=== PATIENT | female | born 1935 | race Caucasian/White ===

== ENCOUNTER 2022-05-17 21:42 | Observation (INO) ==
--- NOTE | 2022-05-17 22:03 | Emergency Department Note ---
Head Injury HPI General Chief complaint: Trauma Stated complaint: Fall Time Seen by Provider: 05/17/22 21:48 Source: patient, family and EMS Mode of arrival: EMS Limitations: no limitations History of Present Illness HPI Narrative: Narrative: Patient arrived to ED via EMS after head trauma following a fall that occurred 30 minutes prior to arrival. Patient dates she was try to move her dog and she fell backwards hitting her head on a box. She denies any loss of consciousness, vision change, headaches, nausea, vomiting, extremity weakness, extremity numbness, dizziness. She reports that she is on a blood thinner, Xarelto. She was also recently started on a baby aspirin. Patient denies any other alleviating or aggravating factors. Related Data Home Medications Medication Instructions Recorded Confirmed brimonidine 0.2 % eye drops 1 drp ophthalmic (eye) BID 04/03/15 02/10/22 latanoprost 0.005 % eye drops 1 drp ophthalmic (eye) QHS 04/03/15 02/10/22 potassium gluconate 550 mg (90 mg) 595 mg PO QDAY 04/03/15 02/10/22 tablet cetirizine 10 mg tablet (All Day 5 mg PO QDAY PRN 01/20/19 02/10/22 Allergy (cetirizine)) timolol 0.5 % eye drops 1 drp ophthalmic (eye) QDAY 10/24/19 02/10/22 rivaroxaban 15 mg tablet (Xarelto) 15 mg PO QDAY 05/02/20 02/10/22 Previous Rx's Medication Instructions Recorded atorvastatin 10 mg tablet 10 mg PO QDAY #90 tabs 12/24/21 ipratropium bromide 42 mcg (0.06 2 spray intranasal QDAY allergy 12/24/21 %) nasal spray symptoms #15 mL oxybutynin chloride 5 mg tablet 5 mg PO QHS bladder spasms #90 tabs 12/24/21 pantoprazole 40 mg tablet,delayed 40 mg PO QDAY stomach upset #90 12/24/21 release tabs tramadol 50 mg tablet 50 mg PO TID PRN pain #90 tabs 12/24/21 diclofenac sodium 75 mg 75 mg PO BID #60 tabs 04/10/22 tablet,delayed release Allergies Allergy/AdvReac Type Severity Reaction Status Date / Time meperidine [From Demerol] Allergy Severe Unknown Verified 05/17/22 21:48 oxytetracycline Allergy Intermediate NAUSEA, Verified 05/17/22 21:48 [From TERRAMYCIN] VOMITING sulfamethoxazole Allergy Intermediate Unknown Verified 05/17/22 21:48 [From Bactrim] trimethoprim [From Bactrim] Allergy Intermediate Unknown Verified 05/17/22 21:48 codeine [CODEINE] Allergy Mild ITCHING Verified 05/17/22 21:48 fluticasone Allergy Unknown Cough Verified 05/17/22 21:48 [From Advair Diskus] salmeterol Allergy Unknown Cough Verified 05/17/22 21:48 [From Advair Diskus] Acjbrcq-QVM-QzS Reductase AdvReac Intermediate back pain, Verified 05/17/22 21:48 Inhibitor aches [Laudqbi-Ikx-Jbb Reductase Inhibitor] morphine AdvReac Unknown Nausea/Vomi Verified 05/17/22 21:48 ting Sulfa (Sulfonamide AdvReac Unknown Nausea/Vomi Verified 05/17/22 21:48 Antibiotics) ting [SULFA (SULFONAMIDE ANTIBIOTICS)] From TERRAMYCIN Allergy Intermediate NAUSEA, Uncoded 12/24/21 08:29 VOMITING Review of Systems ROS ROS Narrative: Narrative: All systems ED: reviewed and negative except as stated. [facility] Narrative Patient History Narrative: Narrative: Medical/Surgical/Family History All Active Problems (Updated 05/17/22 @ 23:04 by Eric Nieto DO) Fall (Acute) Contusion of head (Acute) Chronic anticoagulation (Acute) Shoulder arthritis (Acute) Initial Medicare annual wellness visit (Acute) Facial twitching (Acute) Chronic, continuous use of opioids (Acute) Medicare annual wellness visit, subsequent (Acute) Medicare annual wellness visit, initial (Acute) Ventricular ectopy (Acute) Hypomagnesemia (Chronic) Benign positional vertigo (Acute) Dog bite of right hand with infection (Acute) Glaucoma (Acute) Gastritis (Acute) Chest pain (Acute) Bug bite (Acute) Wellness examination (Chronic) Overactive bladder (Chronic) Depression (Chronic) Chronic pain (Chronic) Rib pain on right side (Chronic) Annual physical exam (Chronic) Pacemaker (Chronic) S/P angioplasty with stent (Chronic) PE (pulmonary embolism) (Chronic) Essential hypertension (Chronic) Hyperlipidemia (Chronic) Esophageal reflux (Chronic) Depressive disorder (Chronic) CAD (coronary artery disease) (Chronic) Arthritis (Chronic) Medical History Anemia 1950 Annual physical exam Arthritis stable with diclofenac, cmp ok Asthma with exacerbation Back Pain 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 CAD (coronary artery disease) s/p stent, on asa, and statin. no cp or sob. 2013 Nuclear stress test was negative. 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 on diclofenac which makes it worse. Essential hypertension Facial twitching Fracture of ankle, closed 1959 Gastritis Hepatitis 1957 History of EKG (08/02/15) Hyperlipidemia Initial Medicare annual wellness visit Medicare annual wellness visit, initial Medicare annual wellness visit, subsequent Overactive bladder PE (pulmonary embolism) Rib pain on right side Urinary tract infection noted on UA, may explain some of the fatigue, treat with cipro. Wellness examination Surgical History History of bilateral knee replacement 2000 - Left, 2012 - Right History of cholecystectomy 1966 History of colonoscopy 01/2013 History of hysterectomy 1972 Hx of appendectomy 1950 Pacemaker 03/07/2014 - Medtronic, Model [id number] S/P angioplasty with stent 01/1998 Family History Mother Alzheimer's disease Grandmother Type 2 diabetes mellitus Essential hypertension Myocardial Infarction Father , 76 Pulmonary emphysema Aunt Malignant neoplasm Tuberculosis Social History Smoking Status: Former smoker Alcohol Intake Frequency: does not drink Substance Use: does not use Exam Narrative Narrative: Narrative: General Limitations: no limitations General appearance: Present alert Head Head: Present atraumatic and normocephalic Eye Eye: Present PERRL and EOMI ENT ENT: Present normal oropharynx and mucous membranes moist Neck Neck: Present normal inspection and full ROM; Absent tenderness Chest Chest: Present normal inspection; Absent tenderness Respiratory Respiratory: Present normal lung sounds bilaterally; Absent respiratory distress Cardiovascular Cardiovascular: Present regular rate and normal rhythm Adbominal Abdominal: Present soft; Absent tenderness Extremities Extremities: Present normal inspection and normal capillary refill Back Back: Present normal inspection; Absent L-S tenderness Neurological Neurological: Present alert and oriented X3 Psychiatric Psychiatric: Present normal affect and normal mood Skin Skin: Present warm (WNL) and intact Course Course Course Narrative: Patient was evaluated for head trauma secondary to a fall. Physical exam was unremarkable and patient was neurologically intact. CT of the head obtained with image reviewed myself no acute intracranial findings. CT cervical spine obtained with image reviewed myself with no acute bony abnormality. Due to the fact that patient is on anticoagulation and she had head trauma recommend that patient be admitted to the hospital for observation to ensure there is no neurological deficits or slow bleeder. Case was discussed with hospitalist who has agreed to admit the patient. Patient is in agreement with plan. Consultations Consultation #1: Case discussed with hospitalist who has agreed to admit the patient Time: 23:01 Vital Signs Vital signs: Vital Signs Temperature 97.7 F 05/17/22 21:43 Pulse Rate 77 05/17/22 21:43 Respiratory Rate 15 05/17/22 21:43 Blood Pressure 147/130 05/17/22 21:43 Pulse Oximetry (%) 97 05/17/22 21:43 Oxygen Delivery Method 05/17/22 21:43 Temperature 97.7 F 05/17/22 21:43 Pulse Rate 77 05/17/22 21:43 Respiratory Rate 15 05/17/22 22:39 Blood Pressure 147/82 05/17/22 22:39 Pulse Oximetry (%) 97 05/17/22 22:39 Oxygen Delivery Method 05/17/22 21:43 [facility] Narrative Medical decision making narrative: Narrative: Differential Diagnosis Differential Diagnosis: Intracranial bleeding, fall Medical Records Medical records reviewed: Yes I reviewed the patient's medical records. Radiology Data Radiology results reviewed: Yes I reviewed the patient's radiology results. Radiology results narrative: CT of the head obtained with image reviewed myself, no acute intracranial findings CT cervical spine obtained with image reviewed myself, no acute bony abnormality Core Measures AMI Core Measures Followed: Yes Discharge Plan Patient/Caregiver Discharge Instructions Pt seen by [employer]/PA only: No Clinical Impression: Fall, Contusion of head, Chronic anticoagulation Patient Disposition: Xfer As Outpt/Obs ([facility]) Condition: Good Follow up with: Randall Gonzales PA-C [Primary Care Provider] - Prescriptions: No Action diclofenac sodium 75 mg tablet,delayed release (DR/EC) 75 mg PO BID Qty: 60 1RF timolol 0.5 % drops 1 drp OPHTHALMIC QDAY Xarelto 15 mg tablet 15 mg PO QDAY Rx Instructions: must administer with evening meal atorvastatin 10 mg tablet 10 mg PO QDAY Qty: 90 3RF ipratropium bromide 42 mcg (0.06 %) spray,non-aerosol 2 spray INTRANASAL QDAY Qty: 15 1RF Rx Instructions: administer into each nostril up to 3 times daily oxybutynin chloride 5 mg tablet 5 mg PO QHS Qty: 90 3RF pantoprazole 40 mg tablet,delayed release (DR/EC) 40 mg PO QDAY Qty: 90 1RF tramadol 50 mg tablet 50 mg PO TID PRN (Reason: pain) Qty: 90 3RF latanoprost 0.005 % drops 1 drp OPHTHALMIC QHS brimonidine 0.2 % drops 1 drp OPHTHALMIC BID potassium gluconate 550 mg (90 mg) tablet 595 mg PO QDAY cetirizine [All Day Allergy (cetirizine)] 10 mg tablet 5 mg PO QDAY PRN
[2022-05-17] MEDS ORDERED: ONDANSETRON 4 MG/2 ML VIAL IV PRN (23:04)
[2022-05-17] MEDS ORDERED: ACETAMINOPHEN 325 MG TABLET PO PRN (23:04)
[2022-05-18] MEDS ORDERED: CETIRIZINE 10 MG TABLET PO PRN (08:22)
--- NOTE | 2022-05-18 08:34 | Internal Med History&Physical ---
HPI History of Present Illness Patient information: Note initiated : 05/18/22 at 8:28 am Service Date, if different from initiated Date: [] Patient: Devorah Damon a 86 y/o F admitted on 05/17/22 for Fall. Chief Complaint: [fall] Chief complaint: fall History of present illness: Ms. Damon is a 86 year old F s/p cardiac pacemaker placement, also have a history of pulmonary embolism on Xarelto, presenting with fall. She had a fall at home last night and was being sent to our ED for further evaluations. Patient denies any loss of consciousness and instead attribute her accident as to being on the ground and losing balance. She denies any headaches. CT of the head without contrast performed in the ED was negative for any intracranial bleeding or any acute intracranial pathologies. Patient denies any nausea or vomiting. She denies any focal weakness or numbness. She denies any confusion or lethargy.'s labs also within normal limits. Admission request was called for observation for fall on anticoagulations. Constitutional Constitutional: Absent chills, excessive sweating, fatigue, fever(s) or weakness EENT Eyes: Absent blurry vision, change in vision, loss of vision or other visual disturbances Ears: Absent decreased hearing or tinnitus Nose, mouth and throat: Absent abnormal hearing, dry mouth, headache(s), nasal congestion or sore throat Cardiovascular Cardiovascular: Absent chest pain, chest pain at rest, edema, irregular heart rhythm or palpatations Respiratory Respiratory: Absent cough, dyspnea or wheezing Gastrointestinal Gastrointestinal: Absent abdominal pain, constipation, diarrhea, nausea or vomiting Musculoskeletal Musculoskeletal: Absent back pain, deformity, limited range of motion, muscle cramps, muscle weakness or numbness Integumentary Integumentary: Absent lesions, rash or wounds Neurological Neurological: Absent focal weakness, headache(s) or numbness Psychiatric Psychiatric: Absent anxiety, depression or hallucinations PFSH PFSH All Active Problems (Updated 05/17/22 @ 23:04 by Eric Nieto DO) Fall (Acute) Contusion of head (Acute) Chronic anticoagulation (Acute) Shoulder arthritis (Acute) Initial Medicare annual wellness visit (Acute) Facial twitching (Acute) Chronic, continuous use of opioids (Acute) Medicare annual wellness visit, subsequent (Acute) Medicare annual wellness visit, initial (Acute) Ventricular ectopy (Acute) Hypomagnesemia (Chronic) Benign positional vertigo (Acute) Dog bite of right hand with infection (Acute) Glaucoma (Acute) Gastritis (Acute) Chest pain (Acute) Bug bite (Acute) Wellness examination (Chronic) Overactive bladder (Chronic) Depression (Chronic) Chronic pain (Chronic) Rib pain on right side (Chronic) Annual physical exam (Chronic) Pacemaker (Chronic) S/P angioplasty with stent (Chronic) PE (pulmonary embolism) (Chronic) Essential hypertension (Chronic) Hyperlipidemia (Chronic) Esophageal reflux (Chronic) Depressive disorder (Chronic) CAD (coronary artery disease) (Chronic) Arthritis (Chronic) Medical History Anemia 1949 Annual physical exam Arthritis stable with diclofenac, cmp ok Asthma with exacerbation Back Pain 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 CAD (coronary artery disease) s/p stent, on asa, and statin. no cp or sob. 2013 Nuclear stress test was negative. 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 on diclofenac which makes it worse. Essential hypertension Facial twitching Fracture of ankle, closed 1959 Gastritis Hepatitis 1957 History of EKG (08/02/15) Hyperlipidemia Initial Medicare annual wellness visit Medicare annual wellness visit, initial Medicare annual wellness visit, subsequent Overactive bladder PE (pulmonary embolism) Rib pain on right side Urinary tract infection noted on UA, may explain some of the fatigue, treat with cipro. Wellness examination Surgical History History of bilateral knee replacement 2001 - Left, 2012 - Right History of cholecystectomy 1966 History of colonoscopy 01/2013 History of hysterectomy 1972 Hx of appendectomy 1950 Pacemaker 03/07/2014 - Medtronic, Model [id number] S/P angioplasty with stent 01/1998 Family History Mother Alzheimer's disease Grandmother Type 2 diabetes mellitus Essential hypertension Myocardial Infarction Father , 76 Pulmonary emphysema Aunt Malignant neoplasm Tuberculosis Social History marital status: well-balanced diet: other physical activity: none alcohol intake frequency: does not drink substance use type: does not use seatbelt use: always MEDS/ALLERGIES Home Medications and Allergies Home Medications Medication Instructions Recorded Confirmed Type brimonidine 0.2 % eye drops 1 drp ophthalmic (eye) BID 04/03/15 05/18/22 History latanoprost 0.005 % eye drops 1 drp ophthalmic (eye) QHS 04/03/15 05/18/22 History potassium gluconate 550 mg (90 mg) 595 mg PO QDAY 04/03/15 05/18/22 History tablet cetirizine 10 mg tablet (All Day 5 mg PO QDAY PRN Allergy Symptoms 01/20/19 05/18/22 History Allergy (cetirizine)) timolol 0.5 % eye drops 1 drp ophthalmic (eye) QDAY 10/24/19 05/18/22 History rivaroxaban 15 mg tablet (Xarelto) 15 mg PO QDAY 05/02/20 05/18/22 History ipratropium bromide 42 mcg (0.06 2 spray intranasal QDAY allergy 12/24/21 0 05/18/22 Rx %) nasal spray symptoms #15 mL oxybutynin chloride 5 mg tablet 5 mg PO QHS bladder spasms #90 tabs 12/24/21 05/18/22 Rx pantoprazole 40 mg tablet,delayed 40 mg PO QDAY stomach upset #90 12/24/21 05/18/22 Rx release tabs tramadol 50 mg tablet 50 mg PO TID PRN pain #90 tabs 12/24/21 05/18/22 Rx diclofenac sodium 75 mg 75 mg PO BID #60 tabs 04/10/22 05/18/22 Rx tablet,delayed release Allergies Allergy/AdvReac Type Severity Reaction Status Date / Time meperidine [From Demerol] Allergy Severe Unknown Verified 05/17/22 21:48 oxytetracycline Allergy Intermediate NAUSEA, Verified 05/17/22 21:48 [From TERRAMYCIN] VOMITING sulfamethoxazole Allergy Intermediate Unknown Verified 05/17/22 21:48 [From Bactrim] trimethoprim [From Bactrim] Allergy Intermediate Unknown Verified 05/17/22 21:48 codeine [CODEINE] Allergy Mild ITCHING Verified 05/17/22 21:48 fluticasone Allergy Unknown Cough Verified 05/17/22 21:48 [From Advair Diskus] salmeterol Allergy Unknown Cough Verified 05/17/22 21:48 [From Advair Diskus] Mhxmlgm-XNP-LwA Reductase AdvReac Intermediate back pain, Verified 05/17/22 21:48 Inhibitor aches [Bbtlswf-Ycv-Kpc Reductase Inhibitor] morphine AdvReac Unknown Nausea/Vomi Verified 05/17/22 21:48 ting Sulfa (Sulfonamide AdvReac Unknown Nausea/Vomi Verified 05/17/22 21:48 Antibiotics) ting [SULFA (SULFONAMIDE ANTIBIOTICS)] From TERRAMYCIN Allergy Intermediate NAUSEA, Uncoded 12/24/21 08:29 VOMITING EXAM Constitutional Vitals: Temp Pulse Resp BP Pulse Ox O2 Del Method 36.8 C 69 16 159/72 94 05/18/22 08:00 05/18/22 08:00 05/18/22 08:00 05/18/22 08:00 05/18/22 08:00 05/18/22 08:00 General appearance: cooperative and no acute distress Head Head exam: Present atraumatic and normocephalic Eye Eye exam: Present EOMI and PERRL ENT ENT exam: Present mucous membranes moist, normal exam and normal external ear exam Neck Neck exam: Present normal inspection; Absent lymphadenopathy, tenderness or thyromegaly Respiratory Respiratory exam: Absent accessory muscle use, respiratory distress or wheezes Cardiovascular Cardiovascular exam: Present normal rate and rhythm; Absent JVD Additional comments: pacemaker in place GI/Abdominal GI/Abdominal exam: Present normal bowel sounds and soft; Absent organomegaly or tenderness Extremities Exam Extremities exam: Present full ROM, normal capillary refill and normal inspection; Absent tenderness Neurological Exam Neurological exam: Present alert, CN II-XII intact and oriented X3; Absent motor sensory deficit Psychiatric Psychiatric exam: Present normal affect and normal mood; Absent anxious or depressed Skin Skin exam: Present dry and intact A/P Assessment and plan (1) Fall: Status: Acute Qualifiers: Encounter type: initial encounter Qualified Code(s): W19.XXXA - Unspecified fall, initial encounter (2) Contusion of head: Status: Acute Qualifiers: Contusion of head detail: scalp Encounter type: initial encounter Qualified Code(s): S00.03XA - Contusion of scalp, initial encounter (3) Chronic anticoagulation: Status: Acute (4) PE (pulmonary embolism): Status: Chronic Narrative A/P Narrative: Assessment and Plans: 1. Fall, chronic anticoagulation therapy: Observation med surg d/c Xarelto Neuro Chek q4hr 2. h/o pulmonary embolism, on chronic anticoagulation therapy: d/c Xarelto due to increased fall risk 3. h/o glaucoma: Continue her home regimen of eye drops GI ppx: continue oral PPI from home regimen DVT ppx: SCDs Code status: Full Prognosis: stable Disposition: observation med surg Time Spent With Patient Time: Total time spent is greater than 50% in coordination of care (as documented) at patient's floor/unit and/or counseling patient: Total time spent with greater than 50% in coordination of care (as documented) at patient's floor/unit and/or counseling patient:: 35 - 50 minutes QUALITY VTE Deep Vein Thrombosis/Pulmonary Embolism Present on Admission: No
--- NOTE | 2022-05-18 08:48 | Discharge Summary ---
Discharge Provider Provider IMPORTANT FOLLOW-UP INFORMATION FOR PCP: Patient information: Note initiated : 05/18/22 at 8:46 am Service Date, if different from initiated Date: [] Patient: Devorah Damon 86 y/o F admitted on 05/17/22 for Fall. Chief Complaint: [] Date of admission: 05/17/22 23:40 Discharge date: 05/18/22 Primary care physician: Randall Gonzales PA-C Attending physician on admission: Graeme Waggoner Consults: 05/17/22 Consult to Physician [CONS] Stat Comment: Consulting Provider: Graeme Waggoner Reason For Exam: Physician to Consult Attending physician on discharge: Graeme Waggoner COURSE Hospital Course Hospital course: Patient was admitted on May 17, 2022 for accidental fall in the context of chronic anticoagulation therapy aspirin and Xarelto. CT of the head without contrast did not show any intracranial bleeding or any other acute pathologies. There is no mental status changes or new neurological deficits overnight and patient's remained clinically stable. Decision was thus made to discharge patient's home and in the morning with instructions to hold both aspirin and Xarelto for now. She already have an upcoming follow-up appointment with a new PCP in a week so she was told to keep that appointment. All questions were answered prior to patient being physically discharged. Discharge diagnosis: Accidental fall Time Spent with Patient Time attestation: Total time spent providing and/or coordinating discharge services: Time spent: Less than 30 minutes EXAM Constitutional Vitals: Temp Pulse Resp BP Pulse Ox O2 Del Method 36.8 C 69 16 159/72 94 05/18/22 08:00 05/18/22 08:00 05/18/22 08:00 05/18/22 08:00 05/18/22 08:00 05/18/22 08:00 General appearance: cooperative and no acute distress Head Head exam: Present atraumatic and normocephalic Eye Eye exam: Present EOMI and PERRL ENT ENT exam: Present mucous membranes moist, normal exam and normal external ear exam Neck Neck exam: Present normal inspection; Absent lymphadenopathy, tenderness or thyromegaly Respiratory Respiratory exam: Absent accessory muscle use, respiratory distress or wheezes Cardiovascular Cardiovascular exam: Present normal rate and rhythm; Absent JVD Additional comments: pacemaker in place GI/Abdominal GI/Abdominal exam: Present normal bowel sounds and soft; Absent organomegaly or tenderness Extremities Exam Extremities exam: Present full ROM, normal capillary refill and normal inspection; Absent tenderness Neurological Exam Neurological exam: Present alert, CN II-XII intact and oriented X3; Absent motor sensory deficit Psychiatric Psychiatric exam: Present normal affect and normal mood; Absent anxious or depressed Skin Skin exam: Present dry and intact Discharge Plan Patient/Caregiver Discharge Instructions Activity: increase activity as tolerated Diet: Regular Diet Prescriptions: Continued diclofenac sodium 75 mg tablet,delayed release (DR/EC) 75 mg PO BID Qty: 60 1RF timolol 0.5 % drops 1 drp OPHTHALMIC QDAY ipratropium bromide 42 mcg (0.06 %) spray,non-aerosol 2 spray INTRANASAL QDAY Qty: 15 1RF Rx Instructions: administer into each nostril up to 3 times daily oxybutynin chloride 5 mg tablet 5 mg PO QHS Qty: 90 3RF pantoprazole 40 mg tablet,delayed release (DR/EC) 40 mg PO QDAY Qty: 90 1RF tramadol 50 mg tablet 50 mg PO TID PRN (Reason: pain) Qty: 90 3RF latanoprost 0.005 % drops 1 drp OPHTHALMIC QHS brimonidine 0.2 % drops 1 drp OPHTHALMIC BID potassium gluconate 550 mg (90 mg) tablet 595 mg PO QDAY cetirizine [All Day Allergy (cetirizine)] 10 mg tablet 5 mg PO QDAY PRN (Reason: Allergy Symptoms) Discontinued Xarelto 15 mg tablet 15 mg PO QDAY Rx Instructions: must administer with evening meal Follow Up Plan Follow up with: Randall Gonzales PA-C [Primary Care Provider] - Patient Disposition: Home, Self-Care Prognosis: Good Rehab Potential: Good I certify that the patient requires SNF services: No Overall status at discharge: patient is back to baseline Discharge Orders: Discharge Order (Routine); Ordered 05/18/22 Ordered By: Graeme COLON VTE Deep Vein Thrombosis/Pulmonary Embolism Present on Admission: No
[2022-05-18] MEDS ORDERED: traZODone HCL 50 MG TABLET PO PRN (08:56)
[2022-05-18] MEDS ORDERED: ONDANSETRON 4 MG/2 ML VIAL IV PRN (08:56)
[2022-05-18] MEDS ORDERED: IPRATROPIUM/ALBUTEROL 3 ML AMPUL.NEB NEB PRN (08:56)
[2022-05-18] MEDS ORDERED: BRIMONIDINE OPHTH DROPS 1 GTT BOTTLE 5ML OU SCH (09:00)
[2022-05-18] MEDS ORDERED: PANTOPRAZOLE 40 MG TABLET PO SCH (09:00)
[2022-05-18] MEDS ORDERED: DOCUSATE SODIUM 100 MG CAPSULE PO SCH (09:00)
[2022-05-18] MEDS ORDERED: IPRATROPIUM 0.06% NASAL SPRAY BOTTLE 30ML NAS SCH (09:00)
[2022-05-18] MEDS ORDERED: traMADol 50 MG TABLET PO PRN (09:11)
--- NOTE | 2022-05-18 09:40 | Cat Scan Report ---
History: Fell, head injury, anticoagulated TECHNIQUE: The brain was imaged without contrast in an axial plane at 2.5 mm intervals. Sagittal and coronal reformats were created. The radiation exposure was limited using dose reduction technology. FINDINGS: There is mild generalized atrophy, most apparent in the frontal lobes and around the sylvian fissures. There is no intracranial hemorrhage, edema, infarct or mass effect. There are subtle areas of decreased attenuation in the centrum semiovale within the frontal and parietal lobes bilaterally. No abnormal extra-axial fluid collection is present. The ventricles are normal in size. There is dense ossification of the falx. Bone windows show no skull fracture. No scalp hematoma is present. The visualized portion of the sinuses and orbits are normal. IMPRESSION: Normal age-related degenerative changes No evidence of acute head injury Interpreted and Authenticated by: Noam Obrien 05/18/22
--- NOTE | 2022-05-18 09:47 | Cat Scan Report ---
History: Fell, neck injury TECHNIQUE: The neck was imaged without contrast in axial plane from the skull base through the thoracic inlet. Sagittal and coronal reformats were created. The radiation exposure was limited using dose reduction technology. The cervico-occipital junction is normal. There is no fracture or evidence of acute spinal injury. Advanced degenerative changes are present throughout the neck. Severe disc space narrowing is present at C3-4, C4-5, C5-6 and C6-7. There are medium-sized spurs along the posterior border of the disc at C5-6 causing moderate spinal canal stenosis. There is arthritis in the facets and spurring of the uncinate processes bilaterally resulting in stenosis of the neural foramina throughout the mid and lower neck. No paraspinal hematoma. There are nodules in the thyroid. The largest is located inferiorly in the right lobe and measures 1.4 cm. Contains two calcifications along the periphery. A 2 x 5 mm nodule is present in the left lobe. These were seen on the prior chest CT done on 05/06/19 and there is been slow growth. 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 IMPRESSION: No fracture Severe degenerative disc disease and arthritis Interpreted and Authenticated by: Noam Obrien 05/18/22
[2022-05-18] MEDS ORDERED: 0.9 % SODIUM CHLORIDE 10 ML SYRINGE IV SCH (14:00)
[2022-05-18] MEDS ORDERED: SENNOSIDES 1 TABLET PO SCH (21:00)
[2022-05-18] MEDS ORDERED: DICLOFENAC 75 MG TABLET PO SCH (21:00)
[2022-05-18] MEDS ORDERED: LATANOPROST OPHTH DROPS 2.5ML BOTTLE OU SCH (21:00)
[2022-05-18] MEDS ORDERED: OXYBUTYNIN CHLORIDE 5 MG TABLET PO SCH (21:00)
[2022-05-19] MEDS ORDERED: POTASSIUM GLUCONATE PO SCH (09:00)
[2022-05-19] MEDS ORDERED: Timolol 0.5 % drops OP SCH (09:00)
== END 2022-05-18 10:20 | disposition home or self-care (01) ==
LOC: ED 21:42 → MEDSUR 21:42
PROVIDERS: ADMIT Internal Medicine; ATTEND Internal Medicine